=== PATIENT | female | born 1960 | race Caucasian/White ===

== ENCOUNTER 2017-04-01 15:02 | Emergency (ER) | payer SELFPAY, OTHER | END 2017-04-02 00:26 | disposition left against medical advice (07) | LOC: E/R 15:02 | DX: Z53.21 Procedure and treatment not carried out due to patient leaving prior to being seen by health care provider (principal) ==

== ENCOUNTER 2017-04-03 00:26 | Inpatient (IN) | payer OTHER ==
[2017-04-03] MEDS ORDERED: NORepinephrine 8MG/250 ML (PMX 250 ML IV (01:00)
[2017-04-03] MEDS: DEXTROSE 5%-0.45% NACL 1,000 ML IV ×2 (01:48→12:22)
[2017-04-03] MEDS: PHYTONADIONE 10 MG/ML INJ SC (02:18)
[2017-04-03] MEDS: ONDANSETRON 4 MG INJ IV ×4 (02:18→19:00)
[2017-04-03] MEDS: morphine 2 MG INJ IV ×2 (02:19→14:50)
[2017-04-03] MEDS: OCTREOTIDE 1 MG in SOD CHLORIDE 0.9% 95 ML IV (02:49)
[2017-04-03] MEDS: PANTOPRAZOLE IV 80 MG in SOD CHLORIDE 0.9% 100 ML IVPB (02:50)
[2017-04-03 02:54] LABS: ADD MAN DIFF? NO
[2017-04-03] MEDS: PANTOPRAZOLE IV 80 MG in SOD CHLORIDE 0.9% 100 ML IV ×2 (02:58→12:20)
[2017-04-03] MEDS: LORAZEPAM 2 MG INJ IV ×2 (03:03→15:18)
[2017-04-03 03:04] LABS: ABNORMAL IP MESSAGE 1; BASOPHILS % 0.3 % (0.0-2.0); EOSINOPHILS # 0.1 10^3/ul (0.0-0.5); EOSINOPHILS % 0.9 % (0.0-7.0); HEMATOCRIT 23.3 % (37.0-47.0); HEMOGLOBIN 8.6 g/dl (12.0-16.0); LYMPHOCYTES # 3.6 10^3/ul (0.8-2.9); LYMPHOCYTES % 22.3 % (15.0-51.0); MEAN CORPUSCULAR HEMOGLOBIN 35.7 pg (29.0-33.0); MEAN CORPUSCULAR HGB CONC 36.9 g/dl (32.0-37.0); MEAN CORPUSCULAR VOLUME 96.7 fl (82.0-101.0); MEAN PLATELET VOLUME 11.7 fl (7.4-10.4); MONOCYTE # 2.9 10^3/ul (0.3-0.9); MONOCYTES % 17.9 % (0.0-11.0); NEUTROPHILS % 56.7 % (39.0-77.0); PLATELET COUNT 77 10^3/UL (140-415); POSITIVE DIFF @See below; RED BLOOD COUNT 2.41 10^6/ul (4.20-5.40); RED CELL DISTRIBUTION WIDTH 18.7 % (11.5-14.5)
[2017-04-03 03:04] LABS: WHITE BLOOD COUNT 15.9 10^3/ul (4.8-10.8)
[2017-04-03 03:10] LABS: PT RATIO 2.7
[2017-04-03 03:11] LABS: ALANINE AMINOTRANSFERASE 43 IU/L (13-69); ALBUMIN 2.1 g/dl (3.3-4.9); ALBUMIN/GLOBULIN RATIO 0.65; ALKALINE PHOSPHATASE 92 IU/L (42-121); ANION GAP 19 (8-16); ASPARTATE AMINO TRANSFERASE 78 IU/L (15-46); BILIRUBIN,INDIRECT 2.3 mg/dl (0-1.1); BILIRUBIN,TOTAL 2.6 mg/dl (0.2-1.3); BLOOD UREA NITROGEN 27 mg/dl (7-20); CALCIUM 7.8 mg/dl (8.4-10.2); CARBON DIOXIDE 13 mmol/L (21-31); CHLORIDE 112 mmol/L (97-110); CREATININE 0.64 mg/dl (0.44-1.00); GLUCOSE 119 mg/dl (70-220); MAGNESIUM 1.8 mg/dl (1.7-2.5); SODIUM 140 mmol/L (135-144); TOTAL PROTEIN 5.3 g/dl (6.1-8.1)
[2017-04-03 03:30] LABS: PARTIAL THROMBOPLASTIN TIME 41.7 Sec (25.0-35.0)
[2017-04-03 04:32] LABS: INR 3.27; PROTIME 34.3 Sec (11.9-14.9)
[2017-04-03] MEDS: SOD CHLORIDE 0.9% 1,000 ML IV ×2 (06:45→16:23)
[2017-04-03 07:22] LABS: IMMEDIATE SPIN CROSSMATCH 1 3
[2017-04-03] MEDS: CEFTRIAXONE 1 GM/50 ML (PMX) 50 ML IVPB (07:29)
[2017-04-03 10:01] LABS: ADD UMIC YES; UR ASCORBIC ACID NEGATIVE (NEGATIVE); UR BACTERIA MODERATE /HPF (NONE SEEN); UR BILIRUBIN (Dip) NEGATIVE (NEGATIVE); UR BLOOD (Dip) 2+ mg/dL (NEGATIVE); UR CLARITY CLOUDY (CLEAR); UR COLOR AMBER (YELLOW); UR GLUCOSE (Dip) NEGATIVE (NEGATIVE); UR KETONES (Dip) NEGATIVE (NEGATIVE); UR LEUKOCYTE ESTERASE (Dip) 2+ Leu/ul (NEGATIVE); UR MUCUS MANY /HPF (NONE SEEN); UR NITRITE (Dip) NEGATIVE (NEGATIVE); UR NONSQUAMOUS EPITHELIAL CELL 1 /HPF (NONE SEEN); UR RBC 6 /HPF (0-5); UR SPECIFIC GRAVITY (Dip) 1.024 (1.003-1.030); UR TOTAL PROTEIN (Dip) NEGATIVE (NEGATIVE); UR UROBILINOGEN (Dip) 2+ mg/dL (NEGATIVE); UR WBC 167 /HPF (0-5)
[2017-04-03 12:25] LABS: HEMATOCRIT 19.3 % (37.0-47.0)
[2017-04-03 12:29] LABS: HEMOGLOBIN 6.6 g/dl (12.0-16.0)
[2017-04-03] MEDS: SOD CHLORIDE 0.9% 250 ML IV* (14:00)
[2017-04-03] MEDS ORDERED: DILTIAZEM-D5W 125MG/125ML DRIP 125 ML IV ×2 (14:30)
[2017-04-03] MEDS ORDERED: PROPOFOL 100 ML (14:33)
[2017-04-03] MEDS ORDERED: FENTAnyl (DRIP) 1000 mcg/100mL 100 ML IV (14:59)
[2017-04-03 15:05] LABS: AADO2 Arterial 233.3 mmHg (7.0-24.0); Allen Test ACCEPTAB; Arterial Blood Gas Oxygen Sat 98.2 mmHG (95.0-98.0); Arterial COHb 0.3 % (0.0-3.0); Arterial Fraction of Oxyhgb 97.5 % (93.0-99.0); Arterial HCO3 6.8 mmol/L (22.0-26.0); Arterial MetHb 0.4 % (0.0-1.5); Arterial Total Hemglobin 8.6 g/dl (12.0-18.0); Arterial pCO2 25.2 mmhg (35-45); MODE VENT - AC; Site Right Brachial
[2017-04-03] MEDS: PROPOFOL 100 ML IV (15:10)
[2017-04-03] MEDS: LIDOCAINE 1% (MPF) 5 ML VIAL SC (15:25)
[2017-04-03 17:25] LABS: HEMATOCRIT 21.1 % (37.0-47.0); HEMOGLOBIN 7.1 g/dl (12.0-16.0)
[2017-04-03] MEDS: NA BICARBONATE 8.4% 50 ML SYG IV (17:28)
[2017-04-03] MEDS: DEXTROSE 5%-0.9% NACL 1,000 ML IV ×3 (17:28→21:10)
[2017-04-03] MEDS ORDERED: SODIUM BICARBONATE (IV ADD) 100 MEQ in DEXTROSE 5% 900 ML IV (17:30)
[2017-04-03] MEDS ORDERED: FENTAnyl 50 MCG/ML VIAL (17:54)
[2017-04-03] MEDS: SODIUM BICARBONATE (IV ADD) 100 MEQ in DEXTROSE 5% 900 ML IV (18:34)
[2017-04-03 20:34] LABS: IMMEDIATE SPIN CROSSMATCH 1
[2017-04-03 22:52] LABS: IMMEDIATE SPIN CROSSMATCH 1 6
[2017-04-04 00:18] LABS: AADO2 Arterial 172.5 mmHg (7.0-24.0); Allen Test ACCEPTAB; Arterial Base Excess -8.1 mmol/L (-3.0-3); Arterial Blood Gas Oxygen Sat 98.6 mmHG (95.0-98.0); Arterial COHb 0.3 % (0.0-3.0); Arterial Fraction of Oxyhgb 97.9 % (93.0-99.0); Arterial HCO3 14.3 mmol/L (22.0-26.0); Arterial MetHb 0.4 % (0.0-1.5); Arterial pCO2 20.5 mmhg (35-45); MODE VENT - AC; Site Left Radial
[2017-04-04] MEDS: OCTREOTIDE 1 MG in SOD CHLORIDE 0.9% 95 ML IV ×2 (00:41→19:39)
[2017-04-04] MEDS: ONDANSETRON 4 MG INJ IV ×4 (00:42→18:34)
[2017-04-04 01:34] LABS: HEMATOCRIT 22.2 % (37.0-47.0)
[2017-04-04] MEDS: PROPOFOL 100 ML IV ×3 (03:00→17:01)
[2017-04-04 05:49] LABS: WHITE BLOOD COUNT 16.2 10^3/ul (4.8-10.8)
[2017-04-04 05:49] LABS: ABNORMAL IP MESSAGE 1; HEMATOCRIT 23.9 % (37.0-47.0); HEMOGLOBIN 8.6 g/dl (12.0-16.0); MEAN CORPUSCULAR VOLUME 91.6 fl (82.0-101.0); MEAN PLATELET VOLUME 12.4 fl (7.4-10.4); NUCLEATED RED BLOOD CELLS% 0.6 /100WBC (0.0-0.0); RED BLOOD COUNT 2.61 10^6/ul (4.20-5.40); RED CELL DISTRIBUTION WIDTH 16.7 % (11.5-14.5)
[2017-04-04] MEDS: PANTOPRAZOLE IV 80 MG in SOD CHLORIDE 0.9% 100 ML IV ×2 (05:58→13:52)
[2017-04-04] MEDS: CEFTRIAXONE 1 GM/50 ML (PMX) 50 ML IVPB (05:59)
[2017-04-04 06:12] LABS: PLATELET COUNT 29 10^3/UL (140-415); POSITIVE DIFF @See below
[2017-04-04 06:13] LABS: ADD MAN DIFF? YES
[2017-04-04] MEDS: FENTAnyl (DRIP) 1000 mcg/100mL 100 ML IV (06:17)
[2017-04-04 06:24] LABS: ANION GAP 21 (8-16); BLOOD UREA NITROGEN 46 mg/dl (7-20); CALCIUM 7.5 mg/dl (8.4-10.2); CARBON DIOXIDE 19 mmol/L (21-31); CHLORIDE 111 mmol/L (97-110); CREATININE 1.73 mg/dl (0.44-1.00); GLUCOSE 138 mg/dl (70-220); POTASSIUM 4.1 mmol/L (3.5-5.1); SODIUM 147 mmol/L (135-144)
[2017-04-04 07:12] LABS: ANISOCYTOSIS 2+ (0-0); BAND NEUTROPHILS #M 6.3 10^3/ul (0.0-0.6); BAND NEUTROPHILS % (M) 39 % (0-4); BURR CELLS 1+ (0-0); LYMPHOCYTES #M 2.4 10^3/ul (0.8-2.9); LYMPHOCYTES % (M) 15 % (15-51); MONOCYTE #M 0.6 10^3/ul (0.3-0.9); MONOCYTES % (M) 4 % (0-11); PLATELET ESTIMATE SIG DECREASED; POIKILOCYTOSIS 2+ (0-0); POLYCHROMASIA 2+ (0-0); SEG NEUT #M 7.8 10^3/ul (1.7-7.5); SEGMENTED NEUTROPHILS (M) % 42 % (39-77); SMUDGE%M 2 % (0-0)
[2017-04-04 08:43] LABS: TYPE AND SCREEN 1
[2017-04-04 13:32] LABS: ADD MAN DIFF? NO
[2017-04-04 13:35] LABS: ABNORMAL IP MESSAGE 1; MEAN CORPUSCULAR HEMOGLOBIN 33.2 pg (29.0-33.0); MEAN CORPUSCULAR VOLUME 92.3 fl (82.0-101.0); MEAN PLATELET VOLUME 10.6 fl (7.4-10.4); NUCLEATED RED BLOOD CELLS% 0.7 /100WBC (0.0-0.0); PLATELET COUNT 84 10^3/UL (140-415); RED BLOOD COUNT 2.71 10^6/ul (4.20-5.40); RED CELL DISTRIBUTION WIDTH 17.5 % (11.5-14.5)
[2017-04-04 13:36] LABS: POSITIVE DIFF @See below
[2017-04-04] MEDS: LORAZEPAM 2 MG INJ IV ×7 (13:49→17:04)
[2017-04-04 14:25] LABS: ANISOCYTOSIS 2+ (0-0); BAND NEUTROPHILS #M 3.2 10^3/ul (0.0-0.6); BAND NEUTROPHILS % (M) 17 % (0-4); BURR CELLS 1+ (0-0); EOSINOPHILS % (M) 1 % (0-7); ERYTHROBLAST% (NRBC) (M) 1 % (0-0); GIANT THROMBO% (M) 2 % (0-0); LYMPHOCYTES #M 3.2 10^3/ul (0.8-2.9); LYMPHOCYTES % (M) 17 % (15-51); METAMYELOCYTES #M 0.1 10^3/ul (0.0-0.0); METAMYELOCYTES %M 1 % (0-0); MONOCYTE #M 1.3 10^3/ul (0.3-0.9); MONOCYTES % (M) 7 % (0-11); PLATELET ESTIMATE DECREASED; POIKILOCYTOSIS 2+ (0-0); POLYCHROMASIA 3+ (0-0); PROMYELOCYTES #M 0.1 10^3/ul (0-0); PROMYELOCYTES % (M) 1 % (0-0); SEG NEUT #M 11.2 10^3/ul (1.7-7.5); SEGMENTED NEUTROPHILS (M) % 56 % (39-77); SMUDGE%M 5 % (0-0); TARGET CELLS 1+ (0-0)
[2017-04-04] MEDS: LACTULOSE 30ML CUP NGT ×2 (14:54→18:34)
[2017-04-04] MEDS ORDERED: AMIODARONE 900 MG in DEXTROSE 5% 482 ML IV (15:00)
[2017-04-04] MEDS: LEVETIRACETAM 500 MG (PMX) 100 ML IVPB (15:20)
[2017-04-04] MEDS: AMIODARONE 900 MG in DEXTROSE 5% 482 ML IV (15:37)
[2017-04-04 15:46] LABS: AMMONIA 625 umol/l (9-30)
[2017-04-04] MEDS ORDERED: NORepinephrine 8MG/250 ML (PMX 250 ML (16:36)
[2017-04-04] MEDS: LEVETIRACETAM 1000 MG (PMX) 100 ML IVPB (18:24)
[2017-04-04] MEDS: PHENYLephrine 160 MG in DEXTROSE 5% 484 ML IV (19:01)
[2017-04-04] MEDS: LORAZEPAM (MDV) 100 MG in DEXTROSE 5% 50 ML IV (19:22)
[2017-04-04 19:29] LABS: HEMATOCRIT 24.7 % (37.0-47.0); HEMOGLOBIN 8.5 g/dl (12.0-16.0)
[2017-04-04] MEDS: SODIUM BICARBONATE (IV ADD) 100 MEQ in DEXTROSE 5% 900 ML IV ×2 (19:37→20:33)
[2017-04-04] MEDS ORDERED: LEVETIRACETAM 500 MG (PMX) 100 ML IVPB (21:00)
[2017-04-04] MEDS: morphine (DRIP) 100 MG/100 ML 100 ML IV (23:38)
[2017-04-05] MEDS ORDERED: LEVETIRACETAM 1500 MG (PMX) 100 ML IVPB (09:00)
== END 2017-04-05 00:24 | disposition expired | DRG 368 ==
LOC: TEL 00:26 → ICU 01:37
PROC: 0W3P8ZZ Control Bleeding in Gastrointestinal Tract, Via Natural or Artificial Opening Endoscopic (ICD-10-PCS; principal; 2017-04-03 17:00)
PROC: 5A1945Z Respiratory Ventilation, 24-96 Consecutive Hours (ICD-10-PCS; 2017-04-03 17:00)
PROC: 06L38CZ Occlusion of Esophageal Vein with Extraluminal Device, Via Natural or Artificial Opening Endoscopic (ICD-10-PCS; 2017-04-03 17:00)
PROC: 02HV33Z Insertion of Infusion Device into Superior Vena Cava, Percutaneous Approach (ICD-10-PCS; 2017-04-03 17:00)
PROC: 30233K1 Transfusion of Nonautologous Frozen Plasma into Peripheral Vein, Percutaneous Approach (ICD-10-PCS; 2017-04-03 17:00)
PROC: 30233N1 Transfusion of Nonautologous Red Blood Cells into Peripheral Vein, Percutaneous Approach (ICD-10-PCS; 2017-04-03 17:00)
PROC: 0BH17EZ Insertion of Endotracheal Airway into Trachea, Via Natural or Artificial Opening (ICD-10-PCS; 2017-04-03 17:00)
DX: I85.11 Secondary esophageal varices with bleeding (principal); J96.00 Acute respiratory failure, unspecified whether with hypoxia or hypercapnia; K72.00 Acute and subacute hepatic failure without coma; D68.4 Acquired coagulation factor deficiency; D69.6 Thrombocytopenia, unspecified; R65.10 Systemic inflammatory response syndrome (SIRS) of non-infectious origin without acute organ dysfunction; K70.31 Alcoholic cirrhosis of liver with ascites; D50.0 Iron deficiency anemia secondary to blood loss (chronic); R00.0 Tachycardia, unspecified; I46.8 Cardiac arrest due to other underlying condition
CPT/HCPCS: 31500; 36430; 36569; 36600; 71045; 76705; 76937; 80048; 80053; 81001; 82140; 82803; 82962; 83735; 85014; 85018; 85025; 85610; 85730; 86850; 86900; 86901; 86920; 87040; 87081; 87086; 93005; 94002; 94003; 94770